=== PATIENT | male | born 1970 | race Two or more races ===

== ENCOUNTER 2024-10-22 15:30 | Emergency (ER) | payer SELFPAY ==
--- NOTE | 2024-10-22 15:38 | XR_ITS ---
Examination: AP chest single view Technique one AP portable upright chest single view Exam date and time: October 22, 2024 1617 hours Comparison January 17, 2012 INDICATIONS: Onset chest pain today FINDINGS: Normal heart size Mild elevation right hemidiaphragm Mild vascular congestion. No lobar pneumonia or pulmonary edema IMPRESSION: Mild vascular congestion
--- NOTE | 2024-10-22 15:38 | EKG_ITS ---
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
--- NOTE | 2024-10-22 15:39 | PD.EDADULT ---
ED General RME/HPI General Stated complaint: Palpitations Time Seen by Provider: 10/22/24 15:37 Arrival date/time: 10/22/24 15:30 CC: Chest palpitations HPI ongoing for the past 4 to 5 days was seen in the clinic, who called 911 after an EKG showed abnormal rhythm . EKG presented by EMS from the clinic show right bundle branch block with a PVC. EMS twelve-lead shows the same. Patient is awake alert oriented with no chest pain or shortness of breath at this time. Related Data Home Medications ?Medication ?Instructions ?Recorded ?Confirmed Unobtainable 01/04/20 01/04/20 Allergies Allergy/AdvReac Type Severity Reaction Status Date / Time No Known Allergies Allergy Verified 10/22/24 16:08 Review of Systems Review of Systems Narrative Review of Systems: GEN: No fever, no chills, no weight loss EYES: No discharge, no visual changes, no pain HEENT: No ear pain, no congestion, no sore throat PULM: No shortness of breath, no cough, no congestion CV: + chest pain, no dyspnea on exertion, + palpitations GI: No nausea, no vomiting, no diarrhea, no pain, no constipation : No frequency, no urgency, no dysuria MUSC/SKEL: No joint pain, no back pain SKIN: No rash PSYCH: No hallucinations, no depression HEME/LYMPH: No easy bleeding or bruising tendencies NEURO: No weakness, no headache Past Medical History Past Medical History CARDIAC: Negative Congestive Heart Failure RESPIRATORY: Negative Chronic Obstructive Pulmonary Disease (COPD) GENITOURINARY: Negative Renal Disease ENDOCRINE: Positive Diabetes Mellitus Type 2; Negative Diabetes Mellitus Type 1 Social History SMOKING STATUS: Never smoker SUBSTANCE USE: does not use ED Exam Narrative Physical exam: [General: Anxious but not in any acute distress Head normocephalic HEENT: Within acceptable limits Neck is supple nontender Chest equal chest rise nontender to palpation Respiratory: Clear to auscultation no wheezes crackles or rubs CV: Rate rhythm is regular no murmurs rubs or clicks Abdomen is soft nontender no masses positive bowel sounds all 4 quadrants Back: No CVA tenderness no spinous process tenderness from cervical spine thoracic and lumbar spine Skin: Intact no petechiae rash induration ulceration or crepitus Extremities: Moving all extremity against resistance cap refill less than 2 seconds neurosensory intact Neuro: Awake alert oriented x3 Glascow coma 15 no focal deficits] Course Quality Measures none Orders Category Date Time Status EKG (ED ONLY) *Do not use* NOW Care 10/22/24 15:38 Completed EKG (ED Only) Stat Exams 10/22/24 15:38 Draft XR chest 1V Stat Exams 10/22/24 15:38 Completed B-Type Natriuretic Peptide Stat Lab 10/22/24 16:29 Completed CBC Stat Lab 10/22/24 16:29 Completed Comprehensive Metabolic Panel Stat Lab 10/22/24 16:29 Completed Drug Screen,Urine Stat Lab 10/22/24 15:38 Ordered LDH (Lactate Dehydrogenase) Stat Lab 10/22/24 16:29 Completed Magnesium Stat Lab 10/22/24 16:29 Completed Partial Thromboplastin Time Stat Lab 10/22/24 16:29 Completed Prothrombin Time with INR Stat Lab 10/22/24 16:29 Completed Troponin I Stat Lab 10/22/24 16:29 Completed Urinalysis Stat Lab 10/22/24 15:38 Ordered MDM Patient data External records reviewed:: [facility] previous records and EMS form Clinical information provided by:: patient and EMS Social determinants that could affect healthcare access:: none Patient has the following chronic illnesses:: Diabetes How is presenting disease/condition affected by chronic disease/condition?: uneffected by Evaluation data The following diagnostics were reviewed and interpreted by me:: lab results, radiology exam(s) and EKG tracing(s) Lab and/or radiology exams considered but not ordered:: EKG performed at 1640 shows ventricular rate of 82 RI interval 185 QRS of 126 QTc of 387 sinus rhythm right axis deviation with right bundle branch block. CBC shows no acute leukocytosis anemia thrombocytopenia CMP shows no acute electrolyte imbalances renal impairment transaminitis or T. bili elevation Troponin is negative BNP is negative Chest x-ray shows mild vascular congestion Interpretation Summary: Heart score of 1, patient to be discharged home I suspect the patient mostly has occasional PVC but there is a right bundle branch block that we have no prior documentation of would be advised the patient to follow-up with a hand chain maker for outpatient workup Medications Medications considered but not ordered:: None Medication administrations:: None Consultations Consultation(s) initiated? (list below): No Diagnosis Differential Diagnosis ED Complaint MDM: ACS [place] pneumonia Most likely diagnosis given after review of the tests above:: PVCs, palpitations Admission Indicated Admission indicated?: not indicated Explain why admission is indicated or not indicated:: Stable for outpatient follow-up Admission Request Was there a request for admission?: No Disposition Plan Disposition Plan: Discharge Discharge Attestation Discharge Attestation: The patient and all family members were given an opportunity to ask questions and understood the discharge instructions. Discharge instructions specifically effects, indications for sooner follow up or return to the emergency department, and the expected course of current diagnosis. Patient condition: Stable Medical Decision Making Differential Diagnosis Differential Diagnosis: ACS [place] pneumonia Lab Data 10/22/24 16:29 10/22/24 16:29 Labs: Lab Results 10/22/24 Range/Units 16:29 WBC 7.8 (3.8-10.6) Thou/mm3 RBC 4.71 (4.50-5.90) Miln/mm3 Hgb 14.2 (13.5-16.0) g/dL Hct 40.1 L (41.0-53.0) % MCV 85 (80-100) fL MCH 30.1 (25.0-35.0) pg MCHC 35.4 (31.0-37.0) g/dl RDW Std Deviation 36.2 (35.1-43.9) fL Plt Count 198 (140-440) Thou/mm3 Neut % (Auto) 57 (37-80) % Lymph % (Auto) 33 (10-50) % [place] % (Auto) 8 (0-12) % Eos % (Auto) 2 (0-10) % Baso % (Auto) 1 (0-2.5) % Neut # (Auto) 4.5 (1.8-7.7) Thou/mm3 Lymph # (Auto) 2.5 (1.0-4.8) Thou/mm3 [place] # (Auto) 0.6 (0.0-0.8) Thou/mm3 Eos # (Auto) 0.1 (0.0-0.5) Thou/mm3 Baso # (Auto) 0.0 (0.0-0.2) Thou/mm3 Immature Gran # (Auto) 0.01 H (0.00-0.00) Thou/mm3 Absolute Nucleated RBC 0.00 (0.00-0.00) Thou/mm3 Immature Gran % 0 (0-0) % Nucleated RBC % 0 (0) /100 WBC PT 10.4 (9.0-12.2) Seconds INR 0.9 (0.9-1.3) APTT 25.8 (22.0-36.0) Seconds Sodium 135 L (136-145) mMol/L Potassium 5.2 H (3.4-5.1) mMol/L Chloride 99 (98-107) mMol/L Carbon Dioxide 31.4 H (20.0-31.0) mMol/L Anion Gap 5 L (7-16) BUN 25 H (9-23) mg/dL Creatinine 1.3 (0.6-1.3) mg/dL Estim Creat Clear Calc 76.1 (>60) mL/min eGFR > 60 (60 - ) See Note BUN/Creatinine Ratio 19 (12-20) Ratio Glucose 243 H (74-106) mg/dL Calculated Osmolality 282 (275-295) Calcium 9.6 (8.3-10.6) mg/dL Corrected Calcium 9.6 (8.5-10.1) mg/dL Magnesium 1.9 (1.6-2.6) mg/dL Total Bilirubin 0.5 (0.3-1.2) mg/dL AST 20 (0-34) U/L ALT 23 (10-49) U/L Alkaline Phosphatase 100 (46-116) U/L Lactate Dehydrogenase 199 (120-246) U/L Troponin I < 0.020 (0.0-0.045) ng/mL B-Natriuretic Peptide < 20 (0-100) pg/mL Total Protein 7.1 (5.7-8.2) gm/dL Albumin 4.3 (3.5-5.0) gm/dL Globulin 2.8 (2.3-3.5) gm/dL Albumin/Globulin Ratio 1.5 (1.2-2.2) Discharge Plan Plan Patient Disposition: HOME (Self Care) Patient condition on transfer: Stable Prescriptions/Referrals Prescriptions/Med Rec: No Action Unobtainable Referrals: No Primary/Family,Physician [Primary Care Provider] - In 1 week Elie Gross MD [Physician] - In 1 week Problem List Clinical Impression: Frequent PVCs, Palpitations Patient/Caregiver Discharge Instructions Education Materials: ED Palpitations, ED About Arrhythmias Additional Instructions: Your EKG shows a mild right bundle branch block consider outpatient follow-up with a hand chain maker for workup. If there is a worsening of symptoms in spite of cutting back on coffee or decreasing stress close follow-up with your primary care doctor. Print Language: Vincentian Stand Alone Forms: Mandi Award Info., Patient Portal Info Letter, Work/School Release PA/NETWORK ARCHITECT Supervising Physician PA/NETWORK ARCHITECT Supervising Physician: Michael Webb ENP
[2024-10-22 16:01] VITALS: PULSE 80; O2SAT 98; BMI 30.8
[2024-10-22 16:47] LABS: Basophils % (Auto) 1 % (0-2.5); Eosinophils # (Auto) 0.1 Thou/mm3 (0.0-0.5); Eosinophils % (Auto) 2 % (0-10); Hematocrit 40.1 % (41.0-53.0); Hemoglobin 14.2 g/dL (13.5-16.0); Immature Granulocytes % (Auto) 0 % (0-0); Immature Granulocytes Auto 0.01 Thou/mm3 (0.00-0.00); Lymphocytes # (Auto) 2.5 Thou/mm3 (1.0-4.8); Lymphocytes % (Auto) 33 % (10-50); Mean Corpuscular HGB Conc 35.4 g/dl (31.0-37.0); Mean Corpuscular Hemoglobin 30.1 pg (25.0-35.0); Mean Corpuscular Volume 85 fL (80-100); Monocytes # (Auto) 0.6 Thou/mm3 (0.0-0.8); Monocytes % (Auto) 8 % (0-12); Neutrophils # (Auto) 4.5 Thou/mm3 (1.8-7.7); Neutrophils % (Auto) 57 % (37-80); Nucleated Red Blood Cell % 0 /100 WBC (0); Platelet Count 198 Thou/mm3 (140-440); RDW Standard Deviation 36.2 fL (35.1-43.9); Red Blood Count 4.71 Miln/mm3 (4.50-5.90); White Blood Count 7.8 Thou/mm3 (3.8-10.6)
[2024-10-22 17:04] LABS: B-Type Natriuretic Peptide < 20 pg/mL (0-100); INR 0.9 (0.9-1.3); Partial Thromboplastin Time 25.8 Seconds (22.0-36.0); Prothrombin Time 10.4 Seconds (9.0-12.2)
[2024-10-22 17:07] LABS: Alanine Aminotransferase 23 U/L (10-49); Albumin, Serum 4.3 gm/dL (3.5-5.0); Albumin/Globulin Ratio 1.5 (1.2-2.2); Alkaline Phosphatase 100 U/L (46-116); Anion Gap 5 (7-16); Aspartate Amino Transferase 20 U/L (0-34); BUN/Creatinine Ratio 19 Ratio (12-20); Bilirubin,Total 0.5 mg/dL (0.3-1.2); Blood Urea Nitrogen 25 mg/dL (9-23); Calcium 9.6 mg/dL (8.3-10.6); Calcium (Corrected) 9.6 mg/dL (8.5-10.1); Carbon Dioxide 31.4 mMol/L (20.0-31.0); Chloride 99 mMol/L (98-107); Creatinine (Component) 1.3 mg/dL (0.6-1.3); Estimated Creatinine Clearance 76.1 mL/min (>60); Globulin 2.8 gm/dL (2.3-3.5); Glucose 243 mg/dL (74-106); LDH (Lactate Dehydrogenase) 199 U/L (120-246); Magnesium 1.9 mg/dL (1.6-2.6); Osmolality,Calculated 282 (275-295); Potassium 5.2 mMol/L (3.4-5.1); Sodium 135 mMol/L (136-145); Total Protein 7.1 gm/dL (5.7-8.2); Troponin I < 0.020 ng/mL (0.0-0.045); eGFR > 60 See Note
[2024-10-22 17:20] VITALS: BP 153/98; PULSE 87; RESP 18; TEMP 36.9; O2SAT 96
[2024-10-22 18:06] LABS: Collection Type, Urine Clean Catch; Squamous Epithelial Cell,Urine 0 /hpf (0-5)
[2024-10-22 18:27] LABS: Amphetamine/Methamp Scrn,U Negative (Negative); Barbiturate Screen,Urine Negative (Negative); Benzodiazepines Screen,Urine Negative (Negative); Benzoylecgonine Screen, Ur Negative (Negative); Fentanyl Screen,Urine Negative (Negative); Opiate Screen,Urine Negative (Negative); THC Screen,Urine Negative (Negative)
[2024-10-22 18:32] LABS: Bacteria,Urine Rare; Bilirubin,Urine Negative (Negative); Blood,Urine Trace (Negative); Clarity,Urine Clear (Clear/Hazy); Color,Urine Lt-Yellow (Lt Yel-Yel); Glucose, Urine 2+ (Negative); Ketones,Urine Negative (Negative); Leukocyte Esterase,Urine Negative (Negative); Nitrite,Urine Negative (Negative); Protein,Urine 2+ (Neg - Trace); RBC,Urine 2 /hpf (0-3); Specific Gravity,Urine 1.018 (1.001-1.035); Urobilinogen,Urine Negative mg/dL (0.0-1.0); WBC,Urine 1 /hpf (0-5)
== END 2024-10-22 18:21 | disposition home or self-care (01) ==
PROVIDERS: Registered Nurse General Practice; Emergency Provider Emergency Medicine
DX: R00.2 Palpitations (principal); I49.3 Ventricular premature depolarization; I45.10 Unspecified right bundle-branch block
CPT/HCPCS: 36415; 71045; 80053; 80307; 81001; 83615; 83735; 83880; 84484; 85025; 85610; 85730; 93005; 99283

== ENCOUNTER 2024-12-25 16:30 | Emergency (ER) | payer SELFPAY ==
[2024-12-25 16:57] VITALS: BP 152/98; PULSE 82; RESP 20; TEMP 36.8; O2SAT 96; BMI 30.8
--- NOTE | 2024-12-25 17:10 | XR_ITS ---
Examination: PA lateral chest 2 views Technique: Upright PA lateral chest 2 views Exam date and time: December 25, 2024 1730 hrs. Indications: Onset chest pain today. Findings: Moderate elevation right hemidiaphragm Normal heart size No pneumonia or pulmonary edema Impression: No pneumonia or pulmonary edema
--- NOTE | 2024-12-25 17:10 | EKG_ITS ---
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1970 Requested By: Mansoor Cabrera (JOSSELIN) Order Number: [id number] Reading MD: Mansoor Cabrera (MANAGER IMMUNOLOGY) Measurements Intervals [place] Rate: 77 P: 30 PA: 193 QRS: 207 QRSD: 133 T: 39 QT: 364 QTc: 413 Interpretive Statements SINUS RHYTHM WITH OCCASIONAL VENTRICULAR PREMATURE COMPLEXES INDETERMINATE AXIS RIGHT BUNDLE BRANCH BLOCK [120+ ms QRS DURATION, UPRIGHT V1, 40+ ms S IN I/aVL/V4/V5/V6] POSSIBLE ANTERIOR MYOCARDIAL INFARCTION , OF INDETERMINATE AGE [30 ms Q WAVE IN V3/V4, OR R < 0.2 mV IN V4] Compared to ECG 10/22/2024 16:40:33 Ventricular premature complex(es) now present Indeterminate axis now present Right-axis deviation no longer present Myocardial infarct finding still present /store/S0/[id number].pdf
--- NOTE | 2024-12-25 17:11 | PD.EDRME ---
Rapid Medical Screening Exam RME Arrival date/time: 12/25/24 16:30 54-year-old male insulin-dependent diabetic presents to the emergency department today complains of shortness of breath and chest pain Chief Complaint: Chest Pain Time Seen by Provider: 12/25/24 16:55 Vital signs: Vital Signs Temperature 98.2 F 12/25/24 16:57 Pulse Rate 82 12/25/24 16:57 Respiratory Rate 20 12/25/24 16:57 Blood Pressure 152/98 H 12/25/24 16:57 Pulse Oximetry (%) 96 12/25/24 16:57 Oxygen Delivery Method Room Air 12/25/24 16:57
[2024-12-25 17:41] LABS: Collection Type, Urine Clean Catch; RBC,Urine 0 /hpf (0-3); Squamous Epithelial Cell,Urine 0 /hpf (0-5); WBC,Urine 0 /hpf (0-5)
[2024-12-25 18:06] LABS: Amphetamine/Methamp Scrn,U Negative (Negative); Barbiturate Screen,Urine Negative (Negative); Benzodiazepines Screen,Urine Negative (Negative); Benzoylecgonine Screen, Ur Negative (Negative); Fentanyl Screen,Urine Negative (Negative); Opiate Screen,Urine Negative (Negative); THC Screen,Urine Negative (Negative)
[2024-12-25 18:09] LABS: Basophils % (Auto) 1 % (0-2.5); Eosinophils # (Auto) 0.2 Thou/mm3 (0.0-0.5); Eosinophils % (Auto) 3 % (0-10); Hematocrit 38.6 % (41.0-53.0); Hemoglobin 13.8 g/dL (13.5-16.0); Immature Granulocytes % (Auto) 0 % (0-0); Immature Granulocytes Auto 0.01 Thou/mm3 (0.00-0.00); Lymphocytes % (Auto) 35 % (10-50); Mean Corpuscular HGB Conc 35.8 g/dl (31.0-37.0); Mean Corpuscular Hemoglobin 30.5 pg (25.0-35.0); Mean Corpuscular Volume 85 fL (80-100); Monocytes # (Auto) 0.5 Thou/mm3 (0.0-0.8); Monocytes % (Auto) 8 % (0-12); Neutrophils # (Auto) 3.1 Thou/mm3 (1.8-7.7); Neutrophils % (Auto) 54 % (37-80); Nucleated Red Blood Cell % 0 /100 WBC (0); Platelet Count 193 Thou/mm3 (140-440); RDW Standard Deviation 36.8 fL (35.1-43.9); Red Blood Count 4.53 Miln/mm3 (4.50-5.90); White Blood Count 5.8 Thou/mm3 (3.8-10.6)
[2024-12-25 18:23] LABS: B-Type Natriuretic Peptide 27 pg/mL (0-100)
[2024-12-25 18:26] LABS: Alanine Aminotransferase 18 U/L (10-49); Albumin, Serum 3.8 gm/dL (3.5-5.0); Albumin/Globulin Ratio 1.4 (1.2-2.2); Alkaline Phosphatase 88 U/L (46-116); Anion Gap 4 (7-16); Aspartate Amino Transferase 12 U/L (0-34); BUN/Creatinine Ratio 16 Ratio (12-20); Bilirubin,Total 0.3 mg/dL (0.3-1.2); Blood Urea Nitrogen 19 mg/dL (9-23); Calcium 9.4 mg/dL (8.3-10.6); Calcium (Corrected) 9.6 mg/dL (8.5-10.1); Carbon Dioxide 29.8 mMol/L (20.0-31.0); Chloride 102 mMol/L (98-107); Creatinine (Component) 1.2 mg/dL (0.6-1.3); Estimated Creatinine Clearance 82.4 mL/min (>60); Globulin 2.7 gm/dL (2.3-3.5); Glucose 357 mg/dL (74-106); Lipase 57 U/L (12-53); Magnesium 1.8 mg/dL (1.6-2.6); Osmolality,Calculated 288 (275-295); Potassium 5.3 mMol/L (3.4-5.1); Sodium 136 mMol/L (136-145); Total Protein 6.5 gm/dL (5.7-8.2); Troponin I < 0.020 ng/mL (0.0-0.045); eGFR > 60 See Note
[2024-12-25 18:36] LABS: INR 0.9 (0.9-1.3); Partial Thromboplastin Time 26.8 Seconds (22.0-36.0); Prothrombin Time 10.3 Seconds (9.0-12.2)
[2024-12-25 18:36] LABS: Bilirubin,Urine Negative (Negative); Blood,Urine Negative (Negative); Clarity,Urine Clear (Clear/Hazy); Color,Urine Lt-Yellow (Lt Yel-Yel); Glucose, Urine 4+ (Negative); Ketones,Urine Negative (Negative); Leukocyte Esterase,Urine Negative (Negative); Nitrite,Urine Negative (Negative); Protein,Urine 2+ (Neg - Trace); Specific Gravity,Urine 1.024 (1.001-1.035); Urobilinogen,Urine Negative mg/dL (0.0-1.0)
[2024-12-25 18:40] LABS: Glucose Estimated Average 226 mg/dL (80-131); Hemoglobin A1C 9.5 % Hgb (4.8-6.0)
[2024-12-25 19:40] VITALS: BP 145/80; PULSE 78; RESP 18; TEMP 36.7; O2SAT 95
--- NOTE | 2024-12-25 20:00 | EDNOTE_ITS ---
ED Weakness RME/HPI General Chief complaint: Chest Pain Stated complaint: CX PAIN, PALPITATIONS IN HEART , WEAK TIRED, SOB Time Seen by Provider: 12/25/24 16:55 Arrival date/time: 12/25/24 16:30 RME / HPI RME / HPI Narrative: 54-year-old male patient with significant history of diabetes, came in for evaluation regarding on and off palpitation, earlier today, patient developed sudden onset of shortness of breath and worsening palpitation, and feeling tired and weak. 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 It lasted for few minutes. Patient was seen by [place] emergency room 3 months ago for the same complaints. And pending appointment with director of regional sales in [place]On my initial evaluation patient is not having any symptoms. Related Data Home Medications ?Medication ?Instructions ?Recorded ?Confirmed Unobtainable 01/04/20 01/04/20 Allergies Allergy/AdvReac Type Severity Reaction Status Date / Time No Known Allergies Allergy Verified 12/25/24 16:31 Review of Systems Review of Systems Narrative Review of Systems: Review of system reviewed and within normal limits except mentioned in HPI ED Exam Narrative Physical exam: VITAL SIGNS: Reviewed. GENERAL APPEARANCE: Alert and interactive, follows commands, no acute distress, HEAD AND FACE: Non-traumatic. ENT: PERRL, pink conjunctivitis, eyelid no trauma, Mucous membrane moist. NECK: Supple, nontender, no nuchal rigidity. CHEST: No tenderness, no crepitus, no paradoxical movement, no retractions. LUNGS: Clear, well ventilated, symmetric, no rales, no wheezing, no ronchi, no stridor, good breath sounds bilaterally. HEART: Regular rate, regular rhythm, no murmur, no gallops. ABDOMEN: Soft, positive bowel sounds, nondistended, no guarding, nontender, no rebound, no masses, RECTAL: Deferred. GENITAL: Deferred. NEUROLOGICAL: Gross motor function intact sensory function intact, Appropriate for age. MUSCULOSKELETAL: low back nontender, full range of motion. EXTREMITIES: Nontender, full range of motion. SKIN: Color pink, dry, no rash, no lacerations, no abrasions, no contusions. LYMPHATICS: Deferred. Course Quality Measures none Orders Category Date Time Status EKG (ED ONLY) *Do not use* NOW Care 12/25/24 17:10 Completed EKG (ED Only) Stat Exams 12/25/24 17:10 Draft XR chest 2V Stat Exams 12/25/24 17:10 Completed A1C [Glycohemoglobin w (eAG)] Stat Lab 12/25/24 17:49 Completed B-Type Natriuretic Peptide Stat Lab 12/25/24 17:49 Completed CBC Stat Lab 12/25/24 17:49 Completed Comprehensive Metabolic Panel Stat Lab 12/25/24 17:49 Completed Drug Screen,Urine Stat Lab 12/25/24 17:32 Completed Lipase Stat Lab 12/25/24 17:49 Completed Magnesium Stat Lab 12/25/24 17:49 Completed Partial Thromboplastin Time Stat Lab 12/25/24 17:49 Completed Prothrombin Time with INR Stat Lab 12/25/24 17:49 Completed Troponin I Stat Lab 12/25/24 17:49 Completed Urinalysis Stat Lab 12/25/24 17:32 Completed Vital Signs Vital signs: Vital Signs Temperature 98.2 F 12/25/24 16:57 Pulse Rate 82 12/25/24 16:57 Respiratory Rate 20 12/25/24 16:57 Blood Pressure 152/98 H 12/25/24 16:57 Pulse Oximetry (%) 96 12/25/24 16:57 Oxygen Delivery Method Room Air 12/25/24 16:57 Weakness MDM Narrative MDM Narrative:: 54-year-old male patient with significant history of diabetes, came in for evaluation regarding on and off palpitation, earlier today, patient developed sudden onset of shortness of breath and worsening palpitation, and feeling tired and weak. 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 It lasted for few minutes. Patient was seen by [place] emergency room 3 months ago for the same complaints. And pending appointment with director of regional sales in [place]On my initial evaluation patient is not having any symptoms. Patient's workup today all came back normal including troponin which is normal. The rest of the labs unremarkable. Chest x-ray also came back unremarkable. EKG showed sinus rhythm with occasional PVC. Ventricular rate of 77 bpm, [place] interval 193 MS, no ST segment elevation depression noted. Results discussed with the patient. Patient was advised to closely follow-up with director of regional sales at [place] in few days. Patient agrees with the plan. Patient appears nontoxic and hemodynamically stable. Patient discharged home and instructed to follow-up with primary care provider in 24 to 48 hours. Instructed to return to the emergency department immediately if worsening of symptoms Patient data External records reviewed:: None Clinical information provided by:: patient Social determinants that could affect healthcare access:: none Patient has the following chronic illnesses:: Diabetes mellitus How is presenting disease/condition affected by chronic disease/condition?: uneffected by Evaluation data The following diagnostics were reviewed and interpreted by me:: lab results, radiology exam(s) and EKG tracing(s) Lab and/or radiology exams considered but not ordered:: None Interpretation Summary: See results MDM Medications / Prescriptions Medications or Prescriptions considered but not ordered:: None Medication administrations:: None Consultations Consultation(s) initiated? (list below): No Diagnosis Weakness Differential Diagnosis: dehydration and other (Palpitation, chest pain) Most likely diagnosis given after review of the tests above:: Palpitation, Admission Indicated Admission indicated?: not indicated Explain why admission is indicated or not indicated:: Stable, no recurrence of symptoms noted in the emergency room. Admission Request Was there a request for admission?: No Disposition Plan Disposition Plan: Discharge Discharge Attestation Discharge Attestation: The patient was given an opportunity to ask questions and understood the discharge instructions. Discharge instructions specifically effects, indications for sooner follow up or return to the emergency department, and the expected course of current diagnosis. Patient condition: Stable Discharge Plan Plan Patient Disposition: HOME (Self Care) Disposition Comment: stable Prescriptions/Referrals Prescriptions/Med Rec: No Action Unobtainable Referrals: No Primary/Family,Physician [Primary Care Provider] - In 1 week Problem List Clinical Impression: Heart palpitations Patient/Caregiver Discharge Instructions Discharge Activity: activity as tolerated Education Materials: ED Palpitations Additional Instructions: Thank you for the opportunity for serving you today. You are stable for discharged . You are advised to: Follow-up with your PCP in 1 to 2 days and asked for referral to director of regional sales Return to ED for worsening of symptoms Increase oral fluids Print Language: American Stand Alone Forms: Mandi Award Info., Patient Portal Info Letter MADAI/EDINSON Supervising Physician MADAI/EDINSON Supervising Physician: Md Richard
== END 2024-12-25 23:48 | disposition home or self-care (01) ==
PROVIDERS: Nurse Practitioner Primary Care; Emergency Provider Emergency Medicine
DX: R00.2 Palpitations (principal); E11.9 Type 2 diabetes mellitus without complications
CPT/HCPCS: 36415; 71046; 80053; 80307; 81001; 83036; 83690; 83735; 83880; 84484; 85025; 85610; 85730; 93005; 99283

== ENCOUNTER 2025-09-18 09:34 | Emergency (ER) | payer OTHER, BC, SELFPAY ==
[2025-09-18 09:40] VITALS: BP 168/102; PULSE 81; RESP 16; TEMP 36.8; O2SAT 97; BMI 30.4
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
--- NOTE | 2025-09-18 15:21 | PC.LAC ---
TLSO back brace given to patient. patient demonstrated proper use and understanding of how to apply brace.
== END 2025-09-18 15:23 | disposition home or self-care (01) ==
PROVIDERS: Emergency Provider Nurse Practitioner Primary Care; PCP Physician Assistant
DX: S22.089A Unspecified fracture of T11-T12 vertebra, initial encounter for closed fracture (principal); M25.521 Pain in right elbow; R51.9 Headache, unspecified; M54.2 Cervicalgia; M54.50 Low back pain, unspecified; V89.2XXA Person injured in unspecified motor-vehicle accident, traffic, initial encounter
CPT/HCPCS: 70450; 72125; 72128; 72131; 73080; 99283